=== PATIENT | female | born 1965 | race Caucasian/White ===

== ENCOUNTER 2019-12-04 16:56 | Inpatient (IN) | payer MEDICAID ==
[~2019-12-04] VITALS: Ht 160 cm; Wt 66.8 kg
[~2019-12-04 16:56] MED LIST: CYCL-1 PO; HYDR-3964 PO; HYOS-26 SL; LORA1TAB PO; OMEP-50 PO; ONDA-103 PO; PROM25TA14 PO
--- NOTE | 2019-12-04 17:50 | NUR ---
PT WAS BIB HER [place], MAXIME. JORGE L WHITTINGTON IS CONCERNED ABOUT HOW PT IS TO GET HOME IF SHE IS NOT GOING TO BE ADMITTED, STATING SHE WILL NOT BEABLE TO COME PICK HER UP DUE TO HAVING TO WATCH OVER THE PT'S PATIENT, THAT SHE CARES FOR, WHILE SHE IS IN THE HOSPITAL. ADRIA GABRIEL AND MYSELF SPOKE WITH MAXIME AND TOLD HER THAT SHOULD THE PT BE DC HOME, A CAB CAN BE CALLED FOR HER TO TRANPORT HER HOME AND THAT WE WOULD NOTIFY HER IF THE PT IS BEING ADMITTED OR BEING DISCHARGED HOME. CONTACT PHONE FOR MAXIME AND DAUGHTER TORI: [phone]
[2019-12-04] MEDS ORDERED: LORazepam 2 mg/ml vial IV ONE (18:25)
[2019-12-04] MEDS ORDERED: normal saline 1000ML IV soln IVB ONE (18:25)
[2019-12-04 18:53] LABS: BASOPHILS # (AUTO) 0.1 X10'3 (0-0.2); BASOPHILS % (AUTO) 0.6 % (0-1); EOSINOPHILS # (AUTO) 0.1 X10'3 (0-0.9); EOSINOPHILS % (AUTO) 0.9 % (0-6); HEMATOCRIT 44.1 % (35.0-45.0); HEMOGLOBIN 14.7 g/dl (12.0-16.0); LYMPHOCYTES # (AUTO) 3.4 X10'3 (1.1-4.8); LYMPHOCYTES % (AUTO) 38.8 % (21-51); MEAN CORPUSCULAR HEMOGLOBIN 30.8 PG (27.0-31.0); MEAN CORPUSCULAR HGB CONC 33.4 g/dL (33.0-36.5); MEAN CORPUSCULAR VOLUME 92.4 FL (78-98); MEAN PLATELET VOLUME 6.9 FL (7.4-10.4); MONOCYTES # (AUTO) 0.4 X10'3 (0-0.9); NEUTROPHILS # (AUTO) 4.8 X10'3 (1.8-7.7); NEUTROPHILS % (AUTO) 54.7 % (42-75); PLATELET COUNT 558 X10'3 (140-440); RED BLOOD COUNT 4.77 X10'6 (4.20-5.60); WHITE BLOOD COUNT 8.8 X10'3 (4.5-11.0)
[2019-12-04 19:07] LABS: ALANINE AMINOTRANSFERASE 32 U/L (12-78); ALBUMIN 4.1 G/DL (3.4-5.0); ALBUMIN/GLOBULIN RATIO 1.1 (1.1-1.5); ALKALINE PHOSPHATASE 105 IU/L (46-116); ANION GAP 12 (8-16); ASPARTATE AMINO TRANSFERASE 23 U/L (10-37); BILIRUBIN,TOTAL 0.4 MG/DL (0.1-1.0); BLOOD UREA NITROGEN 10 MG/DL (7-18); BUN/CREATININE RATIO 11.1 (6.6-38.0); CALCIUM 8.9 MG/DL (8.5-10.1); CHLORIDE 106 MMOL/L (99-107); GLUCOSE 97 MG/DL (70-104); SODIUM 144 MMOL/L (135-145); TOTAL CARBON DIOXIDE 25.9 MMOL/L (24-32); TOTAL PROTEIN 7.8 G/DL (6.4-8.2); eGFR 66 ML/MIN
[2019-12-04] MEDS ORDERED: aspirin 81mg tab.chew PO ONE (19:15)
[2019-12-04] MEDS ORDERED: regadenoson 0.4mg/5ml syringe IV ONE (19:35)
[2019-12-04] MEDS ORDERED: magnesium Cl slow-release 64mg tablet PO PRN (19:35)
[2019-12-04] MEDS ORDERED: ondansetron/PF 4mg/2ml inj IV PRN (19:35)
[2019-12-04] MEDS ORDERED: magnesium 4gm in 100ml NS 100 ML IV PRN (19:35)
[2019-12-04] MEDS ORDERED: magnesium 2GM in 50ml NS 50 ML IV PRN (19:35)
[2019-12-04] MEDS ORDERED: potassium Cl 20 mEq SR tablet PO PRN ×2 (19:35)
[2019-12-04] MEDS ORDERED: metoclopramide 5 mg/ml inj IV PRN (19:35)
[2019-12-04] MEDS ORDERED: nitroGLYCERIN 0.4mg SUBLingual tab SL PRN (19:35)
[2019-12-04] MEDS ORDERED: magnesium hydroxide 30ml (MOM) UD suspension PO PRN (19:35)
[2019-12-04] MEDS ORDERED: metoprolol tartrate 1mg/ml inj IV PRN (19:35)
[2019-12-04] MEDS ORDERED: mag hydrox/Alum hydrox/simeth 30ml oral suspension PO PRN (19:35)
[2019-12-04] MEDS ORDERED: aminophylline 250mg/10ml inj. IV PRN (19:35)
[2019-12-04] MEDS ORDERED: potassium CL 10mEq/100ml bag 100 ML IV PRN ×2 (19:35)
[2019-12-04] MEDS ORDERED: HYDROcodone/acetaminophen 5mg/325mg tablet PO PRN (19:35)
[2019-12-04] MEDS ORDERED: acetaminophen 325mg tablet PO PRN ×2 (19:35)
[2019-12-04] MEDS ORDERED: bisacodyl 10mg suppository rectal RC PRN (19:35)
[2019-12-04] MEDS: normal saline 1000ml 1,000 ML IV SCH (19:58)
[2019-12-04] MEDS: K and/or MAG REPLACEMENT MC SCH (20:00)
[2019-12-04 20:06] LABS: HEMOGLOBIN A1C 5.4 % (4.5-6.2)
[2019-12-04] MEDS: metoprolol tartrate 12.5mg (1/2 tablet) PO SCH (20:13)
[2019-12-04] MEDS: LORazepam 0.5 MG tablet PO PRN (20:13)
[2019-12-04 20:16] LABS: MAGNESIUM 1.9 MG/DL (1.5-2.4); PHOSPHORUS 2.4 MG/DL (2.3-4.5)
--- NOTE | 2019-12-04 20:24 | NUR ---
report given to chen rn, acce. ipa 313a. pt with stable vs, denies cp, having increased chronic pain to her low and mid back. given ativan 0.5 mg tab and her johnathan dose of metoprolol 12.6, bp 131/91. pt is [id number] and appropriate and cooperative. st on monitor, hr 118.
[2019-12-04 20:46] VITALS: BP 131/85
[2019-12-04] MEDS ORDERED: temazepam 15mg capsule PO PRN (21:00)
[2019-12-04] MEDS: HYDROcodone/acetaminophen 10/325mg tab PO PRN (21:12)
[2019-12-04 21:16] VITALS: BP 128/82
[2019-12-05] VITALS (11 sets, daily range): BP systolic 101–134; BP diastolic 65–86
[2019-12-05 02:09] LABS: HEMATOCRIT 38.9 % (35.0-45.0); HEMOGLOBIN 13.2 g/dl (12.0-16.0); MEAN CORPUSCULAR HEMOGLOBIN 31.7 PG (27.0-31.0); MEAN CORPUSCULAR HGB CONC 33.9 g/dL (33.0-36.5); MEAN CORPUSCULAR VOLUME 93.4 FL (78-98); MEAN PLATELET VOLUME 7.1 FL (7.4-10.4); PLATELET COUNT 483 X10'3 (140-440); RED BLOOD COUNT 4.16 X10'6 (4.20-5.60); RED CELL DISTRIBUTION WIDTH 14.7 % (11.5-14.5); WHITE BLOOD COUNT 10.2 X10'3 (4.5-11.0)
[2019-12-05 02:24] LABS: ALBUMIN 3.2 G/DL (3.4-5.0); ANION GAP 8 (8-16); BLOOD UREA NITROGEN 11 MG/DL (7-18); BUN/CREATININE RATIO 9.8 (6.6-38.0); CALCIUM 8.6 MG/DL (8.5-10.1); CHLORIDE 106 MMOL/L (99-107); CHOL/HDL RATIO 2.5 (0.00-4.99); CHOLESTEROL 159 MG/DL (0-200); CREATININE 1.12 MG/DL (0.40-0.90); GLUCOSE 110 MG/DL (70-104); HDL CHOLESTEROL 64 MG/DL (35-60); LDL CHOLESTEROL 88 MG/DL (50-100); MAGNESIUM 1.9 MG/DL (1.5-2.4); POTASSIUM 3.7 MMOL/L (3.5-5.1); SODIUM 139 MMOL/L (135-145); TOTAL CARBON DIOXIDE 25.5 MMOL/L (24-32); TRIGLYCERIDES 57 MG/DL (20-135); eGFR 51 ML/MIN
[2019-12-05] MEDS: HYDROcodone/acetaminophen 10/325mg tab PO PRN ×3 (02:27→14:29)
[2019-12-05] MEDS ORDERED: HYDROcodone/acetaminophen 5mg/325mg tablet PO PRN (02:30)
[2019-12-05] MEDS ORDERED: LORazepam 1 MG tablet PO PRN (02:30)
[2019-12-05] MEDS ORDERED: pantoprazole 40mg Tablet.DR PO SCH (07:30)
[2019-12-05] MEDS: cyclobenzaprine 10mg tablet PO SCH ×2 (08:00→12:47)
[2019-12-05] MEDS ORDERED: enoxaparin 40mg/0.4ml syringe SUBCUT SCH (08:00)
[2019-12-05] MEDS: metoprolol tartrate 12.5mg (1/2 tablet) PO SCH (08:00)
[2019-12-05] MEDS: K and/or MAG REPLACEMENT MC SCH (08:00)
[2019-12-05] MEDS ORDERED: aspirin 81mg tab.chew PO SCH (08:30)
[2019-12-05] MEDS: LORazepam 0.5 MG tablet PO PRN (08:57)
[2019-12-05] MEDS: normal saline 1000ml 1,000 ML IV SCH (09:53)
== END 2019-12-05 14:52 | disposition home or self-care (01) | DRG 198 ==
LOC: ER 16:56 → ED HOLD 19:55 → MED 3N 20:31 → OBSVTOIN 12-05 07:50
PROVIDERS: ADMIT Family Medicine; ATTEND Family Medicine
DX: R07.89 Other chest pain (principal); F41.1 Generalized anxiety disorder; G30.9 Alzheimer's disease, unspecified; F02.80 Dementia in other diseases classified elsewhere, unspecified severity, without behavioral disturbance, psychotic disturbance, mood disturbance, and anxiety; G40.909 Epilepsy, unspecified, not intractable, without status epilepticus; I10 Essential (primary) hypertension; I20.9 Angina pectoris, unspecified; M79.7 Fibromyalgia; G89.29 Other chronic pain; K21.00 Gastro-esophageal reflux disease with esophagitis, without bleeding; Z88.1 Allergy status to other antibiotic agents; Z88.0 Allergy status to penicillin; Z88.8 Allergy status to other drugs, medicaments and biological substances
CPT/HCPCS: 36415; 71045; 78452; 80048; 80053; 80061; 83036; 83735; 83880; 84100; 84443; 84484; 85025; 85027; 87081; 93005; 93017; 93306; 93308; 96365; 96375; 99285; A9500; G0378; J1650; J2060; J2405; J2785; J7030

== ENCOUNTER 2020-08-17 20:45 | Emergency (ER) | payer MEDICAID ==
[~2020-08-17] VITALS: Ht 160 cm; Wt 59.8 kg
[~2020-08-17 20:45] MED LIST changes: -HYOS-26 SL; -PROM25TA14 PO
[2020-08-17 21:23] LABS: BASOPHILS # (AUTO) 0.1 X10'3 (0-0.2); BASOPHILS % (AUTO) 0.9 % (0-1); EOSINOPHILS # (AUTO) 0.1 X10'3 (0-0.9); EOSINOPHILS % (AUTO) 1.3 % (0-6); HEMATOCRIT 42.8 % (35.0-45.0); HEMOGLOBIN 14.6 g/dl (12.0-16.0); LYMPHOCYTES % (AUTO) 46.9 % (21-51); MEAN CORPUSCULAR HEMOGLOBIN 31.7 PG (27.0-31.0); MEAN CORPUSCULAR HGB CONC 34.2 g/dL (33.0-36.5); MEAN CORPUSCULAR VOLUME 92.7 FL (78-98); MEAN PLATELET VOLUME 7.3 FL (7.4-10.4); MONOCYTES # (AUTO) 0.5 X10'3 (0-0.9); NEUTROPHILS # (AUTO) 4.9 X10'3 (1.8-7.7); NEUTROPHILS % (AUTO) 45.9 % (42-75); PLATELET COUNT 512 X10'3 (140-440); RED BLOOD COUNT 4.62 X10'6 (4.20-5.60); RED CELL DISTRIBUTION WIDTH 13.5 % (11.5-14.5); WHITE BLOOD COUNT 10.8 X10'3 (4.5-11.0)
[2020-08-17 21:44] LABS: ALANINE AMINOTRANSFERASE 37 U/L (12-78); ALBUMIN 4.1 G/DL (3.4-5.0); ALBUMIN/GLOBULIN RATIO 1.1 (1.1-1.5); ALKALINE PHOSPHATASE 109 IU/L (46-116); ANION GAP 12 (8-16); ASPARTATE AMINO TRANSFERASE 19 U/L (10-37); BILIRUBIN,TOTAL 0.2 MG/DL (0.1-1.0); BLOOD UREA NITROGEN 7 MG/DL (7-18); BUN/CREATININE RATIO 8.5 (6.6-38.0); CALCIUM 8.9 MG/DL (8.5-10.1); CHLORIDE 106 MMOL/L (99-107); CREATININE 0.82 MG/DL (0.40-0.90); GLUCOSE 113 MG/DL (70-104); LIPASE 57 U/L (73-393); POTASSIUM 3.7 MMOL/L (3.5-5.1); SODIUM 142 MMOL/L (135-145); TOTAL CARBON DIOXIDE 23.9 MMOL/L (24-32); eGFR 73 ML/MIN
[2020-08-17 22:01] LABS: URINE HCG NEGATIVE (NEG)
[2020-08-17 22:02] LABS: CLARITY,URINE CLEAR (Clear); COLOR,URINE YELLOW (Yellow); GLUCOSE, URINE NEGATIVE (Neg); KETONES,URINE NEGATIVE (Neg); LEUKOCYTE ESTERASE ,URINE MODERATE (Neg); NITRITES, URINE NEGATIVE (Neg); OCCULT BLOOD,URINE NEGATIVE (Neg); PROTEIN,URINE NEGATIVE (Neg); UROBILINOGEN,URINE 0.2 E.U/dL (0.2-1.0)
[2020-08-17 22:14] LABS: UA COLLECTION TYPE CLN CATCH MIDSTREAM
[2020-08-17 22:16] LABS: RBC,URINE NONE SEEN /HPF (0-2)
[2020-08-17 22:18] LABS: BACTERIA,URINE FEW /HPF (Neg); MUCUS STRANDS NONE SEEN /LPF (Neg); SQUAMOUS EPITHELIAL CELL,UR FEW /LPF (FEW)
[2020-08-17] MEDS ORDERED: iohexol 350MG/ML 100ml bottle IV ONE (22:27)
[2020-08-18 00:20] VITALS: BP 109/75
[2020-08-18] MEDS ORDERED: ACET-1025 PO (00:26)
[2020-08-18] MEDS ORDERED: CYCL-1 PO (00:26)
[2020-08-18] MEDS ORDERED: CEPH250T PO (00:26)
== END 2020-08-18 00:42 | disposition home or self-care (01) ==
LOC: ER 20:45
DX: M54.6 Pain in thoracic spine (principal); N39.0 Urinary tract infection, site not specified; Z88.0 Allergy status to penicillin; Z88.1 Allergy status to other antibiotic agents; W19.XXXA Unspecified fall, initial encounter; Y93.89 Activity, other specified; Y92.89 Other specified places as the place of occurrence of the external cause; Y99.8 Other external cause status
CPT/HCPCS: 36415; 71260; 74177; 80053; 81001; 81025; 83690; 85025; 87077; 87088; 87186; 99285; Q9967